=== PATIENT | male | born 1980 | race Caucasian/White ===

== ENCOUNTER 2019-05-25 08:16 | Outpatient (CLI) | payer BC ==
--- NOTE | 2019-05-25 12:14 | PET ---
PET CT: HISTORY: 38-year-old male with Hodgkin's lymphoma. Exam requested for initial staging. Diagnosis was made on b iopsy of right supraclavicular lymphadenopathy. TECHNIQUE: PET scanning with CT attenuation correction was performed from the vertex through the proximal thighs following the intravenous administration of 13.3 mCi F18-FDG in the right antecubital fossa. COMPARISON: None. CORRELATION: CT neck of 05/16/2019 from [facility]. FINDINGS: There are multiple hypermetabolic lymph nodes in the lower neck and chest. These demonstrate SUVs of 8.3 in the right supraclavicular, 4 in the left supraclavicular, 9.6 in the right paratracheal, 6.2 i n the right superior mediastinum, 7.9 in the subcarinal, and 10.7 in the right pericardiac regions. No hypermetabolic lymph nodes are seen in the axilla, hilar regions, abdomen, pelvis, or inguinal reg ions. No hypermetabolic pulmonary nodules, liver, adrenal, or skeletal lesions are seen. There is physiologic activity in the GI and tracts, and brain. The CT scan used for attenuation correction demonstrates no evidence of pleural or pericardial effusi ons, or ascites. A gallstone is present. IMPRESSION: Stage II Hodgkin's lymphoma (involving two or more lymph node regions on the same side of the diaphra gm). POS: AMADOR
== END 2019-05-25 08:17 | disposition home or self-care (01) ==
LOC: PET 08:16
PROVIDERS: ATTEND Internal Medicine Hematology & Oncology
DX: C81.92 Hodgkin lymphoma, unspecified, intrathoracic lymph nodes (principal)
CPT/HCPCS: 78815; A9552

== ENCOUNTER 2019-05-28 12:33 | Outpatient (CLI) | payer BC | END 2019-05-28 12:34 | disposition home or self-care (01) | LOC: ULT 12:33 | PROVIDERS: ATTEND Internal Medicine Hematology & Oncology | DX: Z51.11 Encounter for antineoplastic chemotherapy (principal); C81.91 Hodgkin lymphoma, unspecified, lymph nodes of head, face, and neck; Z79.899 Other long term (current) drug therapy; I08.1 Rheumatic disorders of both mitral and tricuspid valves | CPT/HCPCS: 93306 ==

== ENCOUNTER 2019-05-30 06:02 | Day surgery (SDC) | payer BC ==
[2019-05-29 10:55] VITALS: BMI 36.9
[2019-05-30] MEDS ORDERED: Fentanyl 100 MCG/2 ML VIAL ONE (06:21)
[2019-05-30] MEDS ORDERED: PROPOFOL 0 ML ONE (06:21)
[2019-05-30] MEDS ORDERED: Propofol 500 MG/50 ML VIAL ONE (06:21)
[2019-05-30] MEDS ORDERED: Lidocaine 1% w/Epinephrine 1:100K 20 ML VIAL ONE (06:48)
[2019-05-30] MEDS ORDERED: Bupivacaine PF 0.5% 30 ML VIAL ONE (06:48)
[2019-05-30] MEDS ORDERED: Midazolam HCl 2 mg/2 ml Vial ONE (07:13)
--- NOTE | 2019-05-30 08:18 | OP ---
DATE OF PROCEDURE: 05/30/2019 PREOPERATIVE DIAGNOSIS: Lymphoma, in need of antineoplastic chemotherapy access. POSTOPERATIVE DIAGNOSIS: Lymphoma, in need of antineoplastic chemotherapy access. PROCEDURE PERFORMED: Right subclavian vein MediPort standard-sized PowerPort. ANESTHESIA: TIVA, local 0.5% Marcaine 30 mL mixed with 1% Xylocaine with epinephrine 20 mL, fluoroscopy used. DESCRIPTION OF PROCEDURE: The patient was taken to the operating room, where under the supine position and intravenous sedation, neck and chest clipped of hair, prepared with ChloraPrep and draped in routine fashion. Local anesthetic was infiltrated in the skin and subcutaneous tissue about the operative site. Infraclavicular approach made to cannulate the right subclavian vein, J-wire threaded, trocar catheter removed. Skin site was enlarged sharply and subcutaneous pocket dissected free, noting good hemostasis, placing the dilator and pull away sheath over the J-wire into the superior vena cava, removing the J-wire and dilator and placing the MediPort catheter into the superior vena cava. Tip placed optimally in the superior vena cava under fluoroscopic guidance. Catheter tailored to length and connected to the MediPort, secured to the subcutaneous pocket with 2 interrupted suture of 3-0 Prolene. Subcutaneous tissue was approximated with 3-0 Monocryl, skin with subdermal 4-0 Monocryl. MediPort accessed with a Harrison needle, aspirated blood, and flushed with heparinized saline solution. Final fluoroscopic images revealed good MediPort and catheter placement. The patient tolerated the procedure well. Job ID: [id number]
--- NOTE | 2019-05-30 08:25 | RAD ---
EXAM: XR Chest 1 View Portable PROVIDED CLINICAL HISTORY: Mediport placement, Hodgkin lymphoma COMPARISON: 05/25/2019 PET/CT FINDINGS: Widening of the superior mediastinum related to known mediastinal adenopathy. Cardiac silhouette is w ithin normal limits for portable technique. Right subclavian implanted port is noted, tip projecting in expected location of cavoatrial junction. No focal consolidation, pleural fluid or pneu mothorax apparent. IMPRESSION: No evidence for pneumothorax.
[2019-05-30] MEDS ORDERED: Lidocaine 1% PF 5 ML VIAL ONE (10:46)
[2019-05-30] MEDS ORDERED: Ondansetron PF 4 MG/2 ML Vial ONE (10:46)
[2019-05-30] MEDS ORDERED: PROPOFOL 200 MG/20 ML VIAL ONE (10:46)
== END 2019-05-30 09:04 | disposition home or self-care (01) ==
LOC: SDC 06:02
PROVIDERS: ATTEND Specialist
PROC: 02HV33Z Insertion of Infusion Device into Superior Vena Cava, Percutaneous Approach (ICD-10-PCS; principal; 2019-05-30)
DX: C81.90 Hodgkin lymphoma, unspecified, unspecified site (principal)
CPT/HCPCS: 71045; C1788; J0690; J1642; J2250; J2704; J3010; S0020

== ENCOUNTER 2019-10-30 07:36 | Outpatient (CLI) | payer BC, OTHER ==
[2019-10-30 14:47] LABS: #Eosinphils 0.1 thou/uL (0.0-0.7); #Lymphocytes 0.8 thou/uL (1.20-3.40); #Monocytes 0.5 thou/uL (0.11-0.59); #Neutrophils 5.6 thou/uL (1.40-6.50); %Basophils 0.4 % (0.0-1.0); %Eosinophils 2.1 % (0.0-10.0); %Lymphocytes 11.7 % (21.0-51.0); %Monocytes 6.5 % (0.0-10.0); %Neutrophils 79.4 % (42.0-75.0); Hemoglobin 14.4 g/dL (14.0-18.0); Mean Corpuscular HGB CONC 32.3 g/dL (32.0-36.0); Mean Corpuscular Hemoglobin 32.2 pg (27.0-31.0); Mean Corpuscular Volume 99.6 fL (78.0-98.0); Mean Platelet Volume 9.2 fL (7.4-10.4); Platelet Count 281 thou/uL (130-400); RBC Distribution Width 13.2 % (11.5-14.5); Red Blood Cell (RBC) Count 4.47 mill/uL (4.70-6.10)
[2019-10-30 14:54] LABS: ALT (SGPT) 51 U/L (8-55); AST (SGOT) 26 U/L (5-34); Albumin 4.5 g/dL (3.5-5.0); Alkaline Phosphatase 89 U/L (40-110); Anion Gap 15 mmol/L (10-20); BUN (Urea Nitrogen) 15 mg/dL (8.9-20.6); Bilirubin, Total 0.2 mg/dL (0.2-1.2); Calc. Creatinine Clearance 0 mL/min (70-130); Calcium 9.5 mg/dL (7.8-10.44); Carbon Dioxide 27 mmol/L (22-29); Chloride 106 mmol/L (98-107); Estimated GFR-MDRD 79; Globulin 2.9 g/dL (2.4-3.5); Glucose 116 mg/dL (70-105); Potassium 4.9 mmol/L (3.5-5.1); Protein, Total 7.4 g/dL (6.0-8.3); Sodium 143 mmol/L (136-145)
[2019-10-31 12:51] LABS: SARS-CoV-2 MS2 Positive; SARS-CoV-2 N Gene Negative; SARS-CoV-2 S Gene Negative; SARS-CoV-2 by NAA Not Detected (NotDetected); SARS-CoV-2 orf1ab Negative
== END 2019-10-30 07:37 | disposition home or self-care (01) ==
LOC: LABBT 07:36
PROVIDERS: ATTEND Specialist
DX: Z01.812 Encounter for preprocedural laboratory examination (principal); K80.20 Calculus of gallbladder without cholecystitis without obstruction; Z20.828 Contact with and (suspected) exposure to other viral communicable diseases
CPT/HCPCS: 80053; 85025; 87635; U0003

== ENCOUNTER 2019-11-02 08:24 | Day surgery (SDC) | payer BC ==
[2019-11-02] MEDS ORDERED: Acetaminophen 500 MG TAB ONE (08:43)
[2019-11-02] MEDS ORDERED: Ketorolac Tromethamine 30 MG/ML VIAL ONE ×2 (08:44→09:30)
[2019-11-02] MEDS ORDERED: Bupivacaine PF 0.5% 30 ML VIAL ONE ×2 (09:25→10:03)
[2019-11-02] MEDS ORDERED: Lidocaine 1% w/Epinephrine 1:100K 20 ML VIAL ONE ×2 (09:25→10:03)
[2019-11-02] MEDS ORDERED: Dexamethasone 20 MG/5 ML VIAL ONE (09:30)
[2019-11-02] MEDS ORDERED: Rocuronium Bromide 10 MG/ML (10ML VIAL) ONE (09:30)
[2019-11-02] MEDS ORDERED: PROPOFOL 200 MG/20 ML VIAL ONE (09:30)
[2019-11-02] MEDS ORDERED: Ondansetron PF 4 MG/2 ML Vial ONE (09:30)
[2019-11-02] MEDS ORDERED: Lidocaine 1% PF 5 ML VIAL ONE (09:30)
[2019-11-02] MEDS ORDERED: Fentanyl 100 MCG/2 ML VIAL ONE ×3 (09:59→11:26)
[2019-11-02] MEDS ORDERED: SUGAMMADEX SODIUM 200 MG/2 ML VIAL ONE (10:08)
--- NOTE | 2019-11-02 15:48 | OP ---
DATE OF PROCEDURE: 11/02/2019 PREOPERATIVE DIAGNOSES: Chronic cholecystitis, cholelithiasis, very large gallstone. POSTOPERATIVE DIAGNOSES: Chronic cholecystitis, cholelithiasis, very large gallstone. PROCEDURE PERFORMED: Laparoscopic video cholecystectomy. ANESTHESIA: General, local 0.5% Marcaine 30 mL mixed with 1% Xylocaine with epinephrine 20 mL. DESCRIPTION OF PROCEDURE: The patient was taken to the operating room, where under general anesthesia, abdomen was prepared with ChloraPrep and draped in routine fashion. Local anesthetic mixture was infiltrated into the skin and subcutaneous tissue about each port site. Infraumbilical incision made. Pneumoperitoneum to 15 mmHg was obtained with a Veress needle, replaced with a 5 port, and video laparoscope inserted. Right subxiphoid incision was made and 11 port placed, right subcostal incision made. At midclavicular and anterior axillary line, the 5 ports were placed. Fundus of the gallbladder grasped, reflected cephalad. Liver appeared to be normal. Infundibulum grasped, reflected laterally. Cystic artery and duct dissected free. Critical view obtained. Cystic artery and duct doubly clipped and divided, and gallbladder dissected free from liver bed, obtaining good hemostasis prior to division of final peritoneal attachments. Gallbladder and contents removed including the large stone, requiring fragmentation for removal. Good hemostasis ensured with cautery. Irrigant and pneumoperitoneum evacuated. All instruments were removed, and all skin incisions were approximated with interrupted subdermal 4-0 Monocryl and [place] glue applied. Job ID: [id number]
== END 2019-11-02 13:50 | disposition home or self-care (01) ==
LOC: SDC 08:24
PROVIDERS: ATTEND Specialist
PROC: 0FT44ZZ Resection of Gallbladder, Percutaneous Endoscopic Approach (ICD-10-PCS; principal; 2019-11-02)
DX: K80.10 Calculus of gallbladder with chronic cholecystitis without obstruction (principal)
CPT/HCPCS: 88304; J0690; J1100; J1885; J2405; J2704; J3010; S0020

== ENCOUNTER 2019-11-29 07:33 | Outpatient (CLI) | payer BC ==
--- NOTE | 2019-11-29 15:26 | PET ---
WHOLE BODY BONE SCAN: INDICATION: History of Hodgkin's lymphoma of the head and neck. RADIOPHARMACEUTICAL: 11.9 mCi of F18-FDG IV. COMPARISON: Prior PET CT dated 07/26/2019. FINDINGS: The biodistribution for the examination appears acceptable. HEAD AND NECK: No hypermetabolic activity or lymphadenopathy is seen within the head and neck region. THORAX: There are new areas of geographic-appearing parenchymal opacity within the medial aspect of the right upper lobe with a peak SUV activity of 3.65 and a mean activity of 3.06. 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 There are more patchy areas of reticulonodular opaci ty within the superior segments of the left lower lobe. No suspicious hypermetabolic lymphadenopathy is grossly evident. There is an enlarged lymph node within the anterior aspect of the mediastinum, adjacent to the SVC measuring 1.95 cm which is relatively stable to the prior examination without hyp ermetabolic activity. There are some paratracheal enlarged lymph nodes that appear slightly smaller than on the prior examination. One of the more conspicuous is seen measuring 1.2 cm in the short axi s where previously this measured 1.4 cm. There is no hypermetabolic activity associated with the par atracheal lymph nodes. No new lymphadenopathy is evident. ABDOMEN AND PELVIS: There is stable teresa central mesentery. No hypermetabolic mass or lymphadenopathy is evident. No h ypermetabolic ascites is present. SKIN AND OSSEOUS STRUCTURES: No hypermetabolic skin or osseous lesions identified. IMPRESSION: 1. Abnormal PET CT. 2. There are persistent but slightly smaller nonhypermetabolic lymph nodes within the right aspect o f the mediastinum. 3. 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 There is a fibrotic component as there are areas of peripheral bronchiectasis seen involving the upper lobes. POS: BH
== END 2019-11-29 07:34 | disposition home or self-care (01) ==
LOC: PET 07:33
PROVIDERS: ATTEND Internal Medicine Hematology & Oncology
DX: C81.91 Hodgkin lymphoma, unspecified, lymph nodes of head, face, and neck (principal); R94.8 Abnormal results of function studies of other organs and systems; R91.8 Other nonspecific abnormal finding of lung field; J47.9 Bronchiectasis, uncomplicated
CPT/HCPCS: 78815; A9552

== ENCOUNTER 2020-08-15 08:57 | Outpatient (CLI) | payer BC | END 2020-08-15 08:58 | disposition home or self-care (01) | LOC: BICCT 08:57 | PROVIDERS: ATTEND Internal Medicine Hematology & Oncology | DX: C81.91 Hodgkin lymphoma, unspecified, lymph nodes of head, face, and neck (principal) | CPT/HCPCS: 70491; 71260 ==

== ENCOUNTER 2021-02-11 08:05 | Outpatient (CLI) | payer BC ==
[2021-02-11] MEDS ORDERED: Iopamidol-370 76% 500 ML 1 ML ONE (11:18)
== END 2021-02-11 08:06 | disposition home or self-care (01) ==
LOC: BICCT 08:05
PROVIDERS: ATTEND Internal Medicine Hematology & Oncology
DX: C81.91 Hodgkin lymphoma, unspecified, lymph nodes of head, face, and neck (principal)
CPT/HCPCS: 70491; 71260

== ENCOUNTER 2022-03-08 07:26 | Outpatient (CLI) | payer BC ==
[2022-03-08] MEDS ORDERED: Iopamidol-370 76% 500 ML 1 ML ONE (08:45)
== END 2022-03-08 07:27 | disposition home or self-care (01) ==
LOC: BICCT 07:26
PROVIDERS: ATTEND Internal Medicine Hematology & Oncology
DX: C81.91 Hodgkin lymphoma, unspecified, lymph nodes of head, face, and neck (principal)
CPT/HCPCS: 70491; 71260